=== PATIENT | female | born 2000 | race Caucasian/White ===

== ENCOUNTER 2022-02-20 16:25 | Emergency (ER) | payer BC, SELFPAY ==
[2022-02-20 16:36] VITALS: BP 142/81; PULSE 107; RESP 18; O2SAT 97; BMI 23.5
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
[2022-02-20 17:27] LABS: Urine Pregnancy, HCG Qual. Negative (Negative)
[2022-02-20 17:30] VITALS: BP 122/70; PULSE 70; RESP 16; O2SAT 99
[2022-02-20 18:26] VITALS: BP 120/68; PULSE 74; RESP 16; O2SAT 98
[2022-02-20 18:28] VITALS: BP 120/68; PULSE 74; RESP 16; TEMP 36.8; O2SAT 98
== END 2022-02-20 18:28 | disposition home or self-care (01) ==
PROVIDERS: Emergency Provider Emergency Medicine; PCP Family Medicine
DX: S16.1XXA Strain of muscle, fascia and tendon at neck level, initial encounter (principal); V89.2XXA Person injured in unspecified motor-vehicle accident, traffic, initial encounter
CPT/HCPCS: 70450; 72125; 81025; 99284